=== PATIENT | female | born 1955 | race Caucasian/White ===

== ENCOUNTER 2018-12-14 07:45 | Emergency (ER) | payer MEDICARE, BC ==
--- OUTSIDE RECORDS SUMMARY | 2018-12-14 07:52 | XMS REPORT | Continuity of Care Document ---
:1955 External Reference #:[id number] Author Name Amelie Putnam Care Team Providers Name Role Phone Kamilah Edwards MD Primary Care Physician Unavailable Payers Date Identification Numbers Payment Provider Subscriber Expires: 2018 Policy Number: [id number] [facility] Alexus Aggarwal PayID: [id number] [address] [address] [place] [address] Policy Number: [id number] Medicare Alexus Aggarwal PayID: [id number] [address] [place] [address] Problems Active Problems Provider Date Coronary arteriosclerosis Christian Lloyd M.D., [facility], [facility] Onset: 05/07/2014 Family History Date Family Member(s) Observation Comments General Heart Disease General Breast Cancer General Brain Cancer Father due to [place] () - At age 72 Mother due to CHF () - At age 65 Siblings 4 I Social History Type Date Description Comments Sex Unknown Marital Status Lives With Occupation Retired ETOH Use Currently consumes alcohol Tobacco Use Start: Unknown End: Patient is a former smoked on and off Unknown smoker in her 20's socially Recreational Drug Use Never Used Drugs Smoking Status Reviewed: 11/30/18 Patient is a former smoked on and off smoker in her 20's socially Exercise Type/Frequency Exercises regularly Allergies, Adverse Reactions, Alerts Active Allergies Reaction Severity Comments Date Ampicillin 05/07/2014 Prednisone 05/07/2014 Medications Active Medications SIG Qnty Indications Ordering Provider Date Levothyroxine Sodium 1 by mouth every 90tabs Unknown day 125mcg Tablets Omeprazole 1 by mouth every 90caps Unknown 20mg Capsules day DR Atorvastatin Calcium take 1 tablet at 90tabs Unknown 20mg bedtime Tablets Aspirin prn for pain Unknown 81mg Tablets Rosuvastatin Calcium take 1 tablet by Unknown 10mg mouth once daily Tablets Vital Signs Date Vital Result Comment 11/30/2018 8:16am Height 58.5 inches 4'10.50" Weight 229.00 lb Heart Rate 66 /min BP Systolic Sitting 130 mmHg Lue large cuff BP Diastolic Sitting 80 mmHg Lue large cuff Respiratory Rate 12 /min O2 % BldC Oximetry 98 % BMI (Body Mass Index) 47.0 kg/m2 Neck Circumference in inches 14.25 05/07/2014 2:21pm Height 58.5 inches 4'10.50" Weight 224.00 lb Heart Rate 72 /min 74 BP Systolic Sitting 158 mmHg left arm, large cuff BP Diastolic Sitting 102 mmHg left arm, large cuff BP Systolic Standing 152 mmHg left arm, large cuff BP Diastolic Standing 96 mmHg left arm, large cuff Respiratory Rate 20 /min BMI (Body Mass Index) 46.0 kg/m2 Procedures Date Code Description Status 10/29/2012 29883 EKG, Interpretation Only Completed Encounters Type Date Location Provider Dx Diagnosis Office Visit 11/30/2018 [facility] No Singh, G47.9 Sleep disorder, 8:30a [facility] unspecified Marcelino G47.33 Obstructive sleep apnea (adult) (pediatric) Office Visit 05/07/2014 [facility] Christian Lloyd, 414.01 Coronary 2:00p [place] [facility] [place], FACC, Atherosclerosis [facility] [place] Office Visit 11/03/2012 Maddy Moreno 401.9 Hypertension Unspec 10:00a [facility] 560.9 Intestinal Obstruction Unspec 530.81 Esophageal Reflux 787.02 Nausea Alone Office Visit 11/02/2012 10:00a Maddy Moreno 401.9 Hypertension Assoc[facility] [place] [facility] Unspec [facility] 560.9 Intestinal Obstruction Unspec 530.81 Esophageal Reflux 787.02 Nausea Alone Office Visit 11/01/2012 9:59a [place] Linda Cole 401.9 Hypertension Assoc,black [place] [facility] Unspec [facility] 560.9 Intestinal Obstruction Unspec 530.81 Esophageal Reflux 787.02 Nausea Alone Plan of Treatment Future Appointment(s):01/02/2019 10:30 am - Jazmin Truong NP at [facility]11/30/2018 - No Singh MDG47.9 Sleep disorder, unspecifiedNew Orders:Home Sleep Testing, Ordered: 11/30/18Follow up: 2 [id number] Obstructive sleep apnea (adult) (pediatric)
[2018-12-14 08:08] VITALS: BP 160/72
--- NOTE | 2018-12-14 08:33 | UC ---
Throat Pain/Nasal Santiago HPI - HPI Summary HPI Summary: 63-year-old female comes in with a chief complaint of upper respiratory tract infection symptoms for about 4 days. Discussed runny nose and postnasal drip. In the evening it's worse in the postnasal drip goes down her throat and then she has a sore throat. Also feeling burning and the lower throat and upper chest. When she lays down at night she gets congestion and has a hard time breathing and has to sit up. When she gets up she can clear her secretions. She's had chills feels like she's had a fever. Has not measured her temperature at home. She has been able to take by mouth. - History of Current Complaint Chief Complaint: UCRespiratory Stated Complaint: SORE THROAT Time Seen by Provider: 12/14/18 08:19 Pain Intensity: 8 - Allergies/Home Medications Allergies/Adverse Reactions: Allergies Allergy/AdvReac Type Severity Reaction Status Date / Time ampicillin Allergy Rash Verified 12/14/18 07:59 prednisone Allergy Altered Verified 12/14/18 07:59 Mental Status Home Medications: Home Medications Guaifen/Phenyleph/Acetaminophn [Mucinex Sinus-Max Severe Cplt] 1 tab PO ONCE PRN 12/14/18 [History Confirmed 12/14/18] Phenylephrine/Dm/Acetaminop/GG [Mucinex Sinus-Max Pressure-Cgh] 1 tab PO ONCE PRN 12/14/18 [History Confirmed 12/14/18] PMH/Surg Hx/FS Hx/Imm Hx Previously Healthy: Yes Endocrine History: Hypothyroidism Cardiovascular History: Hypertension GI/ History: Gastroesophageal Reflux Psychological History: Anxiety - Surgical History Surgical History: Yes Surgery Procedure, Year, and Place: ovarian cyst R hemicolectomy. hysterectomy - Family History Known Family History: Positive: Non-Contributory - Social History Alcohol Use: Rare Substance Use Type: None Smoking Status (MU): Former Smoker When Did the Patient Quit Smoking/Using Tobacco: 50 years ago - Immunization History Most Recent Tetanus Shot: 2008 Review of Systems All Other Systems Reviewed And Are Negative: Yes Constitutional: Positive: Chills Skin: Positive: Negative Eyes: Positive: Negative ENT: Positive: Sore Throat, Nasal Discharge, Sinus Congestion Respiratory: Positive: Other - SEE HPI Cardiovascular: Positive: Other - SEE HPI Gastrointestinal: Positive: Negative Motor: Positive: Negative Neurovascular: Positive: Negative Musculoskeletal: Positive: Negative Neurological: Positive: Negative Psychological: Positive: Negative Is Patient Immunocompromised?: No Physical Exam Triage Information Reviewed: Yes Appearance: No Pain Distress, Well-Nourished, Ill-Appearing - MILD Vital Signs: Initial Vital Signs Temp 99.2 F 12/14/18 07:53 Pulse 83 12/14/18 07:53 Resp 18 12/14/18 07:53 BP 189/102 12/14/18 07:53 Pulse Ox 100 12/14/18 07:53 Vital Signs Reviewed: Yes Eye Exam: Normal Eyes: Positive: Conjunctiva Clear ENT: Positive: Pharyngeal erythema, Nasal congestion, Nasal drainage, TMs normal , Tonsillar swelling - 2+ B/L; NO PERITONSILLAR ABCESS, OROPHARYNX SYMMETRIC AND OPEN, Hoarse voice. Negative: Tonsillar exudate, Muffled voice Throat Pain/Nasal Course/Dx - Course Course Of Treatment: DISCUSSED IF SX WORSENED WITH DIFFICULTY SWALLOWING OR BREATHING, NEEDS TO GO TO THE EMERGENCY DEPARTMENT. NO AIRWAY OBSTRUCTION AT THIS TIME. NO PREDNISONE RX DUE TO ALLERGY TO PREDNISONE. DISCUSSED VIRAL VERSES BACTERIAL INFECTION AND THE ROLE OF ANTIBIOTICS. THE PATIENT PREFERS TO BE ON ANTIBIOTICS AT THIS TIME. - Differential Dx/Diagnosis Provider Diagnosis: Laryngitis, Upper respiratory infection Discharge - Sign-Out/Discharge Documenting (check all that apply): Patient Departure All imaging exams completed and their final reports reviewed: No Studies - Discharge Plan Condition: Stable Disposition: HOME Prescriptions: DOXYcycline CAP(*) [DOXYcycline 100MG CAP(*)] 100 mg PO BID #20 cap Patient Education Materials: Laryngitis (ED), Upper Respiratory Infection (ED) Referrals: Kamilah Edwards MD [Primary Care Provider] - Additional Instructions: FOLLOW UP WITH YOUR DOCTOR IF NOT COMPLETELY IMPROVED. GO TO THE EMERGENCY DEPARTMENT IF YOUR CONDITION WORSENS; DIFFICULTY SWALLOWING OR BREATHING OR ANY QUESTIONS OR CONCERNS. - Billing Disposition and Condition Condition: STABLE Disposition: Home
== END 2018-12-14 08:37 | disposition home or self-care (01) ==
LOC: UCEAST 07:45
DX: J06.9 Acute upper respiratory infection, unspecified (principal); J04.0 Acute laryngitis; I10 Essential (primary) hypertension; Z88.0 Allergy status to penicillin; Z88.8 Allergy status to other drugs, medicaments and biological substances; Z87.891 Personal history of nicotine dependence
CPT/HCPCS: 99212; G0463

== ENCOUNTER 2023-06-06 18:41 | Observation (INO) ==
[2023-06-06 20:54] LABS: ABS Basophils 0.1 10^3/uL (0.0-0.1); ABS Eosinophils 0.1 10^3/uL (0.0-0.5); ABS Lymphocytes 1.7 10^3/uL (1.0-4.8); ABS Monocytes 0.7 10^3/uL (0.0-0.9); ABS Nucleated RBC 0.01 10^3/ul; Eosinophil % 1.1 %; Hematocrit 35.9 % (35-45); Lymphocyte % 19.5 %; Mean Corpuscular Hemoglobin 29.7 pg (27-33); Mean Corpuscular Hgb Conc 33.4 g/dL (31-36); Mean Corpuscular Volume 88.9 fL (80-97); Mean Platelet Volume 8.4 fL (7.5-11.2); Nucleated Red Blood Cells % 0.1 %/100WBC (0.0-0.8); Platelet Count 288 10^3/uL (150-450); Red Blood Count 4.04 10^6/uL (3.63-4.92); Red Cell Distribution Width 15.4 % (12-17); White Blood Count 8.5 10^3/uL (3.8-11.8)
[2023-06-06 21:00] LABS: INR 0.98 (0.83-1.13)
[2023-06-06 21:18] LABS: Albumin 4.1 g/dL (3.2-5.2); Albumin/Globulin Ratio 1.1 (1-3); Calcium 9.3 mg/dL (8.6-10.3); Creatinine, Serum 0.8 mg/dL (0.51-0.95); Globulin 3.7 g/dL (2-4); Total Bilirubin 0.3 mg/dL (0.2-1.0); Total Protein 7.8 g/dL (6.4-8.9); eGFR CKD-EPI 79.7 (>60)
[2023-06-06 21:19] LABS: Potassium 4.6 mmol/L (3.5-5.0)
[2023-06-07] MEDS ORDERED: Enoxaparin 40 MG/0.4 ML SYR SUBCUT SCH (01:00)
[2023-06-07 08:29] LABS: TSH Ultra Thyroid Stim Horm 1.59 mcIU/mL (0.34-5.60)
[2023-06-07 08:38] LABS: Folate 9.32 ng/mL (5.90-24.80)
[2023-06-07] MEDS ORDERED: LENVATINIB PO SCH (09:00)
[2023-06-07] MEDS ORDERED: Gadoteridol (CONTRAST) 279.3 MG/ML 10 ML IV ONE (15:59)
[2023-06-07 17:36] VITALS: BP 124/60
== END 2023-06-07 17:36 | disposition home or self-care (01) ==
LOC: EDHOLD 18:41 → ED 18:41 → SUATTDRO 06-07 00:48 → EDHOLD 06-07 17:35
PROVIDERS: ADMIT Internal Medicine; ATTEND Hospitalist